=== PATIENT | female | born 1945 | race Caucasian/White ===

== ENCOUNTER 2018-03-11 07:24 | Emergency (ER) | payer MEDICARE, OTHER ==
[~2018-03-11] VITALS: Ht 172.7 cm; Wt 88.5 kg
[2018-03-11] MEDS ORDERED: TOPROL XL50 MG PO (07:37)
[2018-03-11] MEDS ORDERED: FLECAINIDE ACET50 MG PO (07:37)
[2018-03-11] MEDS ORDERED: PROTONIX20 MG PO (07:38)
[2018-03-11] MEDS ORDERED: DIOVAN80 MG PO (07:39)
[2018-03-11] MEDS ORDERED: VITAMIN D1000 UNIT PO (07:40)
[2018-03-11] MEDS ORDERED: VITAMIN B COMP1 EACH PO (07:40)
[2018-03-11] MEDS ORDERED: IRON325 M1 PO (07:40)
== END 2018-03-11 10:05 | disposition home or self-care (01) ==
LOC: ED 07:24
DX: I10 Essential (primary) hypertension (principal); Z79.899 Other long term (current) drug therapy
CPT/HCPCS: 80053; 81001; 85025; 99284